=== PATIENT | male | born 1985 | race Caucasian/White ===

== ENCOUNTER → 2020-04-15 15:54 | Outpatient (CLI) | payer OTHER, SELFPAY | PROVIDERS: PCP Family Medicine | DX: R19.4 Change in bowel habit (principal) | CPT/HCPCS: 83630 ==

== ENCOUNTER → 2020-04-24 13:04 | Outpatient (CLI) | payer OTHER, SELFPAY | PROVIDERS: PCP Family Medicine | DX: R19.4 Change in bowel habit (principal) | CPT/HCPCS: 83630 ==

== ENCOUNTER → 2020-10-21 | Outpatient (CLI) | payer OTHER, SELFPAY | END | disposition home or self-care (01) | LOC: LABSPEC 15:18 | PROVIDERS: PCP Family Medicine; Referring Provider Physician Assistant; Visit Provider Physician Assistant | DX: U07.1 COVID-19 (principal); R43.8 Other disturbances of smell and taste | CPT/HCPCS: 87635; U0003 ==